=== PATIENT | female | born 1990 | race Caucasian/White ===

== ENCOUNTER 2023-07-27 15:51 | Emergency (ER) | payer OTHER, SELFPAY ==
[2023-07-27 15:53] VITALS: BP 120/75; BMI 22.7
--- NOTE | 2023-07-27 16:35 | ED.MUSCINJ ---
HPI-Injury
General
Chief Complaint: Fall
Source: patient
Exam Limitations: none
Time Seen by Provider: 07/27/23 16:05
Nursing documentation reviewed up to this point in time: agreed with
Travel History
Have you had any contact with someone who has COVID-19?: No
Do you have any symptoms of coronavirus? Fever > 100 degrees, chills, cough, shortness of breath, sore throat, loss of taste or smell, muscle aches, or headache?: No
History of Present Illness-Injury
Is this injury a work related problem?: No
Is pt an associate of [facility]?: No
Initial Injury comments:
Patient states she was holding her baby and stepped off of a curb onto an uneven surface and fell. Denies hitting her head. COmplains of pain to her left hip, knee, lat foot. Brought self to ED for eval. 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
Past History
Past History
ED Past Medical History: None
ED Past Surgical History: None
Review of Systems
Review of Systems
Allergies reviewed?: Yes
All Other Systems: ROS reviewed and negative except as documented in HPI and ROS
Constitutional: Reports no symptoms
Musculoskeletal: Reports joint pain (Pain to left lat hip, left knee, left lat foot)
Skin: Reports no symptoms
Neurological: Reports no symptoms
Psychiatric: Reports no symptoms
Musculoskeletal Injury Exam
Musculoskeletal Injury Exam
Left Hip:
Pain with Movement?: Moderate
Tender to palpation?: Moderate
Soft tissue swelling?: None
Joint effusion?: None
Contusion?: Moderate
Hematoma-local bleeding into tissue?: None
Strain- Sprain- Tear (Connective tissue injury)?: Moderate
Crepitus with movement?: No
Joint instability?: No
Malalignment/deformity?: No
Range of motion: Full
Distal skin color and temperature: normal-warm & good color
Capillary Refill: normal
Normal distal neurovascular exam?: Yes
Left Knee:
Pain with Movement?: Moderate
Tender to palpation?: Moderate
Soft tissue swelling?: None
Joint effusion?: None
Contusion?: Moderate
Hematoma-local bleeding into tissue?: None
Strain- Sprain- Tear (Connective tissue injury)?: Moderate
Crepitus with movement?: No
Joint instability?: No
Malalignment/deformity?: No
Range of motion: Full
Distal skin color and temperature: normal-warm & good color
Capillary Refill: normal
Normal distal neurovascular exam?: Yes
Left Lateral Foot:
Pain with Movement?: Moderate
Tender to palpation?: Moderate
Soft tissue swelling?: Moderate
External deformity and angulation?: None
Joint effusion?: None
Contusion?: Moderate
Hematoma-local bleeding into tissue?: None
Strain- Sprain- Tear (Connective tissue injury)?: Moderate
Crepitus with movement?: No
Joint instability?: No
Malalignment/deformity?: No
Range of motion: Limited
Distal skin color and temperature: normal-warm & good color
Capillary Refill: normal
Normal distal neurovascular exam?: Yes
Peripheral Pulses: posterior tibial (left): 3+ and dorsalis pedis (left): 3+
Phy Exam
General Physical Exam
General Presentation: well appearing and no apparent distress
General age: appears stated age
General Skin: warm and dry
General Habitus: normal
General Mental: alert
General Hydration: appears well hydrated
Musculoskeletal Exam
Musculoskeletal Exam: neuro vasc intact
Skin Exam
Skin Exam: normal color and warm/dry
Psychiatric Exam
Psychiatric Exam: normal mood/affect
Injury Course
Orders/Labs/Results
Orders:
Orders
07/27/23 15:56
CR Ankle - Left Min 3 Views Urgent
Comment:
Reason For Exam: pain
CR Knee - Left 4 Or More View* Urgent
Comment:
Reason For Exam: pain
Hip, Left 2-3 Views [CR Hip - LT w/wo Pel 2-3 Vw*] Urgent
Comment:
Reason For Exam: pain
Include a pelvis x-ray?: Yes
07/27/23 16:34
Ibuprofen [Motrin] 600 mg PO NOW STA
Foot, Left 3 View [CR Foot - Left Min 3 Views] Urgent
Comment:
Reason For Exam: trauma
07/27/23 17:37
Knee, Right 4 or More Views [CR Knee- Right 4 Or More View*] Urgent
Comment:
Reason For Exam: trauma
*Radiology
Radiology exam reviewed: radiology read reviewed
*Pulse Oximetry
Patient hypoxic: no
*Critical Care Note
Total Time (30-74mins, 75-104mins- exclusive of procedures): Not Applicable
ED Attending Note
-
Portions of this chart may have been created with voice recognition software.� Occasional wrong word or��sound alike� substitutions may have occurred due to the inherent limitations of voice recognition software.
Discharge Plan
Departure
Patient Disposition: Home (Routine Discharge)
Date of Disposition: 07/27/23
Time of Disposition: 17:51
Patient with high blood pressure during this ER visit?: No
Condition: Good
Covid-19: Not Applicable
Discharge Problem:
Foot fracture
Instructions: Contusion (DC), Preventing falls in adults, Foot Avulsion Fracture (DC), Using Cold for Pain, Ibuprofen
Referrals:
Antony Hernandes MD [Active] - Call in 1-3 days for appt
Chantal Garcia PA [Family Provider] -
Interventions
Interventions:
*Risk Screen - Suicide Last Done: 07/27/23 15:53
*Neglect/Abuse Screening Last Done: 07/27/23 15:53
ED- Fall Risk Assessment Last Done: 07/27/23 15:53
*ED COVID-19 Vaccine History Last Done: 07/27/23 15:53
ED-Musculoskeletal Assessment Last Done: 07/27/23 16:30
ED- Neurological Assessment Last Done: 07/27/23 16:30
ED-Skin Assessment Last Done: 07/27/23 16:30
Discharge Date and Time
Print Language: HUNGARIAN
[2023-07-27] MEDS: MOTRIN 600 MG PO (17:08)
== END 2023-07-27 18:16 | disposition home or self-care (01) ==
LOC: EMR 15:51
PROVIDERS: EMERGENCY PHYSICIAN Emergency Medicine; FAMILY PHYSICIAN Nurse Practitioner Family
DX: S92.902A Unspecified fracture of left foot, initial encounter for closed fracture (principal); W19.XXXA Unspecified fall, initial encounter
CPT/HCPCS: 99283; 73502; 73564; 73610; 73630

== ENCOUNTER 2025-01-11 16:46 | Emergency (ER) | payer OTHER, SELFPAY ==
[2025-01-11 16:52] VITALS: BP 127/69
[2025-01-11 17:24] LABS: Hematocrit 37.3 % (37.0-47.0); Hemoglobin 12.7 g/dL (12.0-16.0); Mean Corp Hgb Conc. 34.0 g/dL (33.0-37.0); Mean Corpuscular Volume 94.7 fL (81.0-99.0); Nucleated Red Blood Cells % 0 %; Platelet Count 628 10^3/uL (130-400); Red Cell Dist. Width 13.5 % (11.5-14.5)
[2025-01-11 17:28] LABS: ALT (SGPT) 41 U/L (0-35); AST (SGOT) 34 U/L (14-36); Albumin 4.5 g/dl (3.5-5.0); Alkaline Phosphatase 61 U/L (38-126); Blood Urea Nitrogen 15 mg/dl (7-17); Calcium 9.4 mg/dl (8.4-10.2); Carbon Dioxide 28 mmol/L (22-30); Chloride 104 mmol/L (98-107); Glucose 157 mg/dl (70-99); Potassium 3.9 mmol/L (3.5-5.1); Sodium 138 mmol/L (135-145); Total Protein 7.2 g/dl (6.3-8.2); eGFR > 60.00
--- NOTE | 2025-01-11 21:47 | ED.MUSCINJ ---
HPI-Injury
General
Chief Complaint: Musculo-Skeletal Complaint
Source: patient
Exam Limitations: none
Time Seen by Provider: 01/11/25 20:27
History of Present Illness-Injury
Initial Injury comments:
34-year-old female present complaining of right hip pain getting worse throughout the day worse with motion and has having trouble bearing weight. No known injury. She felt like she had a pop in her hip yesterday was trying to stretch it out but
nothing happened. She notes that she ran 4 miles several days ago but this is not new for her. Fevers. The pain is in her groin. No chest pain or shortness of breath. No numbness or tingling. No other complaints
Past History
Past History
ED Past Medical History: None
ED Past Surgical History: None
Phy Exam
Physical Exam
Physical Exam:
General: Well-appearing female in no acute respiratory distress
HEENT: Normal cephalic atraumatic
Musculoskeletal exam: The right hip is nontender over the lateral aspect of the hip but is tender anteriorly. She has increased pain with internal rotation. There is no crepitance felt with range of motion. She has good passive motion
Skin is warm no rash no lymphadenopathy
Injury Course
Orders/Labs/Results
Orders:
Orders
01/11/25 17:01
CBC/With Diff [Complete Blood Count/With Diff] Urgent
CMP [Comprehensive Metabolic Panel] Urgent
01/11/25 20:39
CR Hip - RT w/wo Pel 2-3 Vw* Urgent
Comment:
Reason For Exam: pain
Include a pelvis x-ray?: Yes
01/11/25 21:49
Ibuprofen [Motrin] 600 mg PO NOW STA
Abnormal Lab Results
01/11/25
17:01
WBC 13.1 H 10^3/uL
(4.8-10.8)
RBC 3.94 L 10^6/uL
(4.20-5.40)
MCH 32.2 H pg
(27.0-31.0)
Plt Count 628 H 10^3/uL
(130-400)
Abs Immat Gran (auto) 0.1 H 10^3/uL
(0-0.05)
Absolute Neuts (auto) 8.7 H 10^3/uL
(1.4-6.5)
Absolute Monos (auto) 1.0 H 10^3/uL
(0.1-0.6)
Glucose 157 H mg/dl
(70-99)
ALT 41 H U/L
(0-35)
01/11/25 17:01
01/11/25 17:01
MDM/Problems Addressed
Differential Diagnosis Includes:
Right hip pain. Consider arthritis versus labral injury versus muscular strain
Young and healthy otherwise do not suspect fracture but will check x-ray. Motrin ordered. Do not suspect septic arthritis given lack of fever
*Pulse Oximetry
SaO2: 96
Oxygen Mode of Delivery: Room air
Patient hypoxic: no
*Critical Care Note
Total Time (30-74mins, 75-104mins- exclusive of procedures): Not Applicable
Update Note
Update Note:
X-rays negative. Question possible hip strain versus labral injury. Patient in quite a bit of discomfort we will prescribe anti-inflammatories and pain medicine. Crutches supplied recommended orthopedic follow-up
ED Attending Note
-
Portions of this chart may have been created with voice recognition software.� Occasional wrong word or��sound alike� substitutions may have occurred due to the inherent limitations of voice recognition software.
Discharge Plan
Departure
Patient Disposition: Home (Routine Discharge)
Date of Disposition: 01/11/25
Time of Disposition: 22:59
Patient with high blood pressure during this ER visit?: No
Discharge Problem:
Acute hip pain
Instructions: Muscle and Bone Pain (DC)
Prescriptions:
New
prednisone 10 mg Tablet
See Rx Instructions .ROUTE .COMPLEX Qty: 30 0RF
Rx Instructions:
Take By Mouth:
40 mg daily x3 days, 30 mg daily x3 days,
20 mg daily x3 days, 10 mg daily x3 days.
hydrocodone-acetaminophen 5-325 mg tablet
1 tab PO TID PRN (Reason: Pain) Qty: 10 0RF
Referrals:
Sapna Fulton I., DO [Active, Orthopedics]
PRIVATE,PHYSICIAN [Family Provider, Internal Medicine]
Activity Restrictions/Additional Instructions:
Use crutches for support. Continue with anti-inflammatories and pain medicine. Return if worse otherwise follow-up with orthopedics
Interventions
Interventions:
*Risk Screen - Suicide Last Done: 01/11/25 16:52
*General Assessment Last Done: 01/11/25 16:52
*Neglect/Abuse Screening Last Done: 01/11/25 16:52
*ED COVID-19 Vaccine History Last Done: 01/11/25 16:52
*ED Influenza Vaccine History Last Done: 01/11/25 16:52
ED-Musculoskeletal Assessment Last Done: 01/11/25 21:49
Discharge Date and Time
Print Language: MALIAN
[2025-01-11 21:49] VITALS: BP 102/64
[2025-01-11] MEDS: MOTRIN 600 MG PO (21:59)
== END 2025-01-11 23:21 | disposition home or self-care (01) ==
LOC: EMR 16:46
PROVIDERS: Emergency Medicine; EMERGENCY PHYSICIAN Emergency Medicine
DX: M25.551 Pain in right hip (principal); M16.0 Bilateral primary osteoarthritis of hip
CPT/HCPCS: 99283; 73502; 80053; 85025